=== PATIENT | female | born 1990 | race Caucasian/White ===

== ENCOUNTER 2016-12-16 13:48 | Emergency (ER) | payer BC ==
--- NOTE | ~2016-12-16 | US67 ---
[facility] A Service of [facility] RADIOLOGY TEXT RESULTS PATIENT: HUSSEIN LOCATION: [facility] : 86 UNIT #: [id number] AGE: [address]: Sincere Masters MD SEX: F ORDER DR: [id number] [address] [address] [id number] MR#: [id number] Acc #: [id number] NAME: HUSSEINDecember : 1990 SEX: F STUDY DATE/TIME: 12/16/2016 15:20 UNIT: ERNESTO ROOM: STUDY DESCRIPTION: Gallbladder Attending Physician: Sincere Masters M.D. Referring Physician: Jerrod Self Referred Ordering Physician: Sincere Masters M.D. Primary Care Physician: Francis Christiansen M.D. MEDICAL IMAGING REPORT This report is preliminary unless electronic signature is present EXAM Gallbladder ultrasound. DATE OF EXAM 12/16/2016 HISTORY Right upper quadrant abdominal pain for 2 months, increasing in the last 2 days. FINDINGS Ultrasound examination of the gallbladder is negative. There is no cholelithiasis, gallbladder wall thickening, or bile duct dilatation. The visualized liver is negative. IMPRESSION Negative gallbladder ultrasound examination. Dictated by... Geovany Copeland M.D. THIS IS AN ELECTRONICALLY VERIFIED REPORT Geovany Copeland M.D. at 12/17/2016 1:12 PM KRT/megan TD: 12/16/2016 17:03 JOB #: [id number] MEDICAL IMAGING REPORT [facility] A Service of [facility] RADIOLOGY TEXT RESULTS PATIENT: HUSSEIN LOCATION: [facility] : [birth year] UNIT #: [id number] AGE: [address]: Sincere Masters MD SEX: F ORDER DR: Page 1 of 1 COPY
[2016-12-16 13:32] LABS: URINE SOURCE CLEAN CATCH
[2016-12-16 13:38] LABS: URINE APPEARANCE CLEAR; URINE BILIRUBIN NEG (NEG); URINE BLOOD NEG (NEG); URINE COLOR YELLOW; URINE GLUCOSE NEG (NEG); URINE KETONE NEG (NEG); URINE LEUKOCYTE ESTERASE TRACE (NEG); URINE NITRATE NEG (NEG); URINE PH 8.5 (5-8); URINE PROTEIN TRACE (NEG); URINE SPECIFIC GRAVITY 1.022 (1.003-1.035)
[2016-12-16 13:40] LABS: URBCS1 AUWI 0-2 /[HPF] (0-2); URINE BACTERIA AUWI NEG (NEGATIVE); URINE SQUAMOUS EPITHELIAL CELL NONE SEEN /[HPF]
[~2016-12-16 13:48] MED LIST: ALBUTEROL17 GM INH; AMOXICILLIN PO; AURALGAN EAR DROPS; PRENATAL MULTIV1 TA1; ZITHROMAX PO
[2016-12-16 13:58] LABS: CULTURE INDICATED? NO
[2016-12-16 14:29] LABS: BASOPHIL% 0.2 % (0-2.5); EOSINOPHIL# 0.1 X10e3 (0-0.7); EOSINOPHIL% 0.9 % (0.0-7.0); HEMATOCRIT 41.2 % (35.0-45.0); HEMOGLOBIN 13.7 gm/dL (12.0-16.0); LYMPHOCYTE# 3.4 X10e3 (1.0-3.5); MEAN CORPUSCULAR HEMOGLOBIN 30.5 PG (28-34); MEAN CORPUSCULAR HGB CONC 33.2 g/dL (30-36); MEAN PLATELET VOLUME 10.2 FL (6.5-11.5); MONOCYTE# 0.7 X10e3 (0-1.0); NEUTROPHIL# 7.5 X10e3 (1.5-7.1); NEUTROPHIL% 63.9 % (40-75); PLATELET COUNT 210 X10e3 (140-420); RED BLOOD COUNT 4.48 X10e (3.90-5.30); RED CELL DISTRIBUTION WIDTH 13.3 % (11.0-15.5); WHITE BLOOD COUNT 11.7 X10e3 (4.0-10.5)
[2016-12-16 14:32] LABS: DIFF IND NO
[2016-12-16 14:51] LABS: ALBUMIN SERUM 4.4 g/dL (3.5-5.0); BILIRUBIN, DIRECT 0.1 mg/dL (0.0-0.2); BILIRUBIN,INDIRECT 0.4 mg/dL (0.0-0.9); BILIRUBIN,TOTAL 0.5 mg/dL (0.2-2.0); CALCIUM SERUM 9.5 mg/dL (8.4-10.2); CREATININE SERUM 0.6 mg/dL (0.6-1.4); POTASSIUM 3.7 mmol/L (3.5-5.1); PROTEIN TOTAL SERUM 8.1 g/dL (6.0-8.3)
== END 2016-12-16 16:40 | disposition home or self-care (01) ==
LOC: CED 13:48
PROVIDERS: Emergency Medicine
DX: R10.11 Right upper quadrant pain (principal); I10 Essential (primary) hypertension; Z79.899 Other long term (current) drug therapy
CPT/HCPCS: 36415; 76705; 80048; 80076; 81003; 83690; 84703; 85025; 96374; 99284; J1885